=== PATIENT | female | born 1965 | race Caucasian/White ===

== ENCOUNTER 2021-03-02 09:05 | Emergency (ER) | payer OTHER, MEDICAID ==
[~2021-03-02] VITALS: Ht 149.9 cm; Wt 58.0 kg
[2021-03-02] MEDS ORDERED: KETOROLAC 60MG/2ML VIAL IM ONE (09:45)
[2021-03-02 09:57] VITALS: BP 137/84
[2021-03-02] MEDS ORDERED: TOPUD PO (11:23)
== END 2021-03-02 11:48 | disposition home or self-care (01) ==
LOC: ER 09:05
DX: R07.81 Pleurodynia (principal)
CPT/HCPCS: 71101; 96372; 99283; J1885